=== PATIENT | female | born 1945 | race Two or more races ===

== ENCOUNTER → 2024-06-06 | Outpatient (CLI) | payer OTHER, MEDICAID, SELFPAY ==
--- NOTE | 2024-06-06 17:07 | XR_ITS ---
Examination: Bilateral hips, AP pelvis, 5 views Technique: AP, lateral views both hips, AP pelvis, 5 views Exam date and time: June 06, 2024 1804 hours INDICATIONS: Patient fell today with injury to both hips, bilateral hip pain. FINDINGS: Severe osteopenia Moderate to advanced narrowing hip joints No right or left hip fracture depicted IMPRESSION: No hip or pelvic fracture noted Given the severe osteopenia, recommend short-term follow-up AP pelvis as clinically warranted
== END | disposition home or self-care (01) ==
PROVIDERS: PCP Family Medicine; Referring Provider Family Medicine; Visit Provider Family Medicine
DX: M85.88 Other specified disorders of bone density and structure, other site (principal); S79.912A Unspecified injury of left hip, initial encounter; S79.911A Unspecified injury of right hip, initial encounter; W19.XXXA Unspecified fall, initial encounter
CPT/HCPCS: 73523

== ENCOUNTER → 2024-07-08 | Outpatient (CLI) | payer MEDICARE, MEDICAID, SELFPAY ==
--- NOTE | 2024-07-08 09:49 | XR_ITS ---
Examination: Breast ultrasound complete, bilateral Date and time of exam: July 08, 2024 1003 hours INDICATIONS: Mammogram 03/26/2024 6 mm focal asymmetry inner left breast Technique: Real-time grayscale ultrasonographic imaging bilateral breasts, including all 4 quadrants as well as nipple retroareolar and axillary regions. Findings: Sonographic images right and left breast demonstrated no cystic or solid masses IMPRESSION: BI-RADS Category 1: Negative studies
[2024-07-08 11:24] LABS: Basophils % (Auto) 0 % (0-2.5); Eosinophils # (Auto) 0.1 Thou/mm3 (0.0-0.5); Eosinophils % (Auto) 1 % (0-10); Hematocrit 43.1 % (36.0-46.0); Hemoglobin 14.1 g/dL (12.0-16.0); Immature Granulocytes % (Auto) 0 % (0-0); Immature Granulocytes Auto 0.01 Thou/mm3 (0.00-0.00); Lymphocytes # (Auto) 2.1 Thou/mm3 (1.0-4.8); Lymphocytes % (Auto) 31 % (10-50); Mean Corpuscular HGB Conc 32.7 g/dl (31.0-37.0); Mean Corpuscular Hemoglobin 30.4 pg (25.0-35.0); Mean Corpuscular Volume 93 fL (80-100); Monocytes # (Auto) 0.4 Thou/mm3 (0.0-0.8); Monocytes % (Auto) 6 % (0-12); Neutrophils # (Auto) 4.3 Thou/mm3 (1.8-7.7); Neutrophils % (Auto) 62 % (37-80); Nucleated Red Blood Cell % 0 /100 WBC (0); Platelet Count 236 Thou/mm3 (140-440); RDW Standard Deviation 42.9 fL (36.4-46.3); Red Blood Count 4.64 Miln/mm3 (4.00-5.20)
[2024-07-08 11:34] LABS: Alanine Aminotransferase 10 U/L (10-49); Albumin, Serum 4.5 gm/dL (3.4-4.8); Albumin/Globulin Ratio 1.6 (1.2-2.2); Alkaline Phosphatase 203 U/L (46-116); Anion Gap 6 (7-16); Aspartate Amino Transferase < 10 U/L (0-34); BUN/Creatinine Ratio 16 Ratio (12-20); Bilirubin,Total 0.6 mg/dL (0.3-1.2); Blood Urea Nitrogen 11 mg/dL (9-23); Calcium 11.1 mg/dL (8.3-10.6); Calcium (Corrected) 11.1 mg/dL (8.5-10.1); Carbon Dioxide 28.8 mMol/L (20.0-31.0); Cardiac Risk Estimate 4.1 RATIO (3.7-5.6); Chloride 104 mMol/L (98-107); Cholesterol 206 mg/dL (132-200); Creatinine (Component) 0.7 mg/dL (0.6-1.3); Globulin 2.9 gm/dL (2.3-3.5); Glucose 162 mg/dL (74-106); HDL Cholesterol 50 mg/dL (40-60); LDL Cholesterol,Calculated 130 mg/dL (0-130); Osmolality,Calculated 280 (275-295); Potassium 4.5 mMol/L (3.4-5.1); Sodium 139 mMol/L (136-145); Total Protein 7.4 gm/dL (5.7-8.2); Triglycerides 131 mg/dL (30-150); eGFR > 60 See Note
[2024-07-08 11:38] LABS: Glucose Estimated Average 197 mg/dL (80-131); Hemoglobin A1C 8.5 % Hgb (4.8-6.0)
== END | disposition home or self-care (01) ==
LOC: CDIM 09:44 → COPL 10:18
PROVIDERS: PCP Family Medicine; Referring Provider Family Medicine; Visit Provider Radiology Diagnostic Radiology
DX: R92.2 Inconclusive mammogram (principal); R92.313 Mammographic fatty tissue density, bilateral breasts; E11.65 Type 2 diabetes mellitus with hyperglycemia; E78.2 Mixed hyperlipidemia; I10 Essential (primary) hypertension
CPT/HCPCS: 36415; 76641; 80053; 80061; 83036; 85025

== ENCOUNTER → 2024-07-10 | Outpatient (CLI) | payer MEDICARE, MEDICAID, SELFPAY ==
[2024-07-10 10:20] LABS: Prothrombin Time 11.4 Seconds (9.0-12.2)
== END | disposition home or self-care (01) ==
LOC: COPL 09:04
PROVIDERS: PCP Family Medicine; Referring Provider Family Medicine; Visit Provider Family Medicine
DX: Z00.00 Encounter for general adult medical examination without abnormal findings (principal); E78.2 Mixed hyperlipidemia; E11.40 Type 2 diabetes mellitus with diabetic neuropathy, unspecified; I10 Essential (primary) hypertension
CPT/HCPCS: 36415; 85610

== ENCOUNTER 2024-09-13 07:32 | Emergency (ER) | payer OTHER, SELFPAY ==
[2024-09-13] VITALS (7 sets, daily range): BP systolic 137–171; BP diastolic 87–97; PULSE 87–106; RESP 16–24; TEMP 36.3–36.8; O2SAT 93–99
--- NOTE | 2024-09-13 07:48 | XR_ITS ---
EXAMINATION: CT head/brain wo con, CT cervical spine wo con ORDERING PROVIDER: Juan Umaña NP HISTORY: Pain to back of head and neck status post fall earlier today. TECHNIQUE: CT scanner was used in the volumetric, helical non-contrast acquisition of the head and cervical spine with 2-D and 3-D reformats created on a separate workstation and submitted for interpretation. Institutional dose reducing protocols were utilized. RADIATION DOSE: DLP 1075 mGy-cm COMPARISON: 02/25/2023, noncontrast head CT. FINDINGS: No acute intracranial hemorrhage, mass effect, or midline shift. Mild to moderate global parenchymal volume loss, similar to prior. Mild resultant prominence in the ventricles and sulci. Basal cisterns are preserved. Again seen are diffuse periventricular and subcortical white matter hypodensities, nonspecific, but can be seen with chronic small vessel ischemic changes. Several similar punctate calcifications right greater than left basal ganglia. Mild diffuse increased density of the intracranial vessels, which may be due to hydration status. Moderate perivascular calcifications. Postcataract surgical changes. Moderate mucosal thickening right greater than left sphenoid sinuses. Diffuse bony demineralization. No acute cervical spine fracture or dislocation. The patient's head is turned toward the right, somewhat limiting evaluation for rotatory subluxation. The lateral masses appear to be symmetric. The dens is intact. There are moderate to severe degenerative disc changes most pronounced from C3 to C7. There is trace C3 on C4 anterolisthesis. There are moderate multilevel uncovertebral hypertrophy and mild upper cervical spine facet arthritis changes. 2 mm left tonsillolith. Moderate calcifications of the right brachiocephalic artery. Tortuous vasculature. No prevertebral soft tissue swelling. Topogram is notable for malalignment right humeral head from the glenoid fossa. IMPRESSION: 1. No acute intracranial hemorrhage, mass effect, or midline shift. 2. No cervical spine fracture or dislocation, though limited evaluation for atlantoaxial subluxation given the patient's head rotation. 3. Topogram notable for malalignment of right humeral head from the glenoid fossa. This may be due to patient positioning or shoulder dislocation. Shoulder radiographs are available if there is clinical concern.
--- NOTE | 2024-09-13 07:48 | XR_ITS ---
Examination:Right hip AP, lateral, AP pelvis 3 views Technique: Hip AP lateral, AP pelvis, 3 views Exam date and time:07/16/2024 0828 hrs. Indications: Patient fell today with injury to the right hip, right hip pain. Findings: No acute right hip fracture Advanced narrowing hip joints. Bones the pelvis intact Impression: No acute right hip fracture, recommend 1 day follow-up AP pelvis as clinically warranted.
--- NOTE | 2024-09-13 07:48 | XR_ITS ---
Examination: AP chest single view Technique one AP portable upright chest single view Exam date and time: September 13, 2024 0824 hrs. Indications: Patient fell today with injury to the chest, chest pain Findings: Mild prominence left ventricle No pneumothorax Right upper rib deformities not seen on February 25, 2023 Anterior right shoulder subcoracoid dislocation Impression: No pneumothorax Recommend elective series follow-up Anterior right shoulder subcoracoid dislocation
--- NOTE | 2024-09-13 07:48 | XR_ITS ---
Examination: Humerus 2 views right Technique: Humerus, AP lateral 2 views Date and time of exam: September 13, 2024 0828 hrs. Indications: Patient fell today with injury to the arm, arm pain Findings: Anterior subcoracoid shoulder dislocation. No fracture Impression: Anterior subcoracoid shoulder dislocation Recommend right rib series follow-up
--- NOTE | 2024-09-13 07:49 | PD.EDRME ---
Rapid Medical Screening Exam [facility] Arrival date/time: 09/13/24 07:32 CC: Grimacing with movement of the right arm, and scratching of the right hip after ground-level fall HPI patient fell yesterday stepping through a doorway is very unsteady gait because a significant history of dementia is nonverbal and is being interpreted by . He is not on any blood thinners denies any loss of consciousness or altered level of consciousness. Grimacing and scratching or indications of pain per the . Chief Complaint: Fall Vital signs: Vital Signs Temperature 98.0 F 09/13/24 07:43 Pulse Rate 106 H 09/13/24 07:43 Respiratory Rate 16 09/13/24 07:43 Blood Pressure 146/91 H 09/13/24 07:43 Pulse Oximetry (%) 94 L 09/13/24 07:43 Oxygen Delivery Method Room Air 09/13/24 07:43
--- NOTE | 2024-09-13 08:53 | PD.EDFALL ---
ED Fall Injury RME/HPI General Chief Complaint: Fall Stated Complaint: RIGHT ARM/LEG PAIN SP FALL Time Seen by Provider: 09/13/24 07:51 Arrival date/time: 09/13/24 07:32 RME / HPI RME / HPI Narrative: 09/13/24 07:32 CC: Grimacing with movement of the right arm, and scratching of the right hip after ground-level fall HPI patient fell yesterday stepping through a doorway is very unsteady gait because a significant history of dementia is nonverbal and is being interpreted by . He is not on any blood thinners denies any loss of consciousness or altered level of consciousness. Grimacing and scratching or indications of pain per the . DR. RASCON MAIN ED EVALUATION: 79 year old female with history of dementia presents to the ED brought in by family for evaluation of right shoulder pain after fall. Per [id number], the patient had a ground level mechanical fall 2 days ago and landing on her right side. States yesterday patient had complained of right shoulder and hip pain. However, noted pain in the right shoulder to be worse today. [id number]-vc-wli additionally reports patient slipped out of her wheelchair this morning. States at baseline the patient is able stand and walk with walker however this morning appears weak and had difficulty standing. History is limited from the patient given hx of dementia. While in the ED, family report patient is confused at baseline and does not appear any worse than usual. Related Data Home Medications ?Medication ?Instructions ?Recorded ?Confirmed sitagliptin phos 100 mg-metformin 1 tab PO QPM 04/16/19 02/04/22 ER 1,000 mg tablet,extend rel 24h mp (Janumet XR) atorvastatin 20 mg tablet 1 tab PO HS 02/04/22 02/04/22 Allergies Allergy/AdvReac Type Severity Reaction Status Date / Time No Known Allergies Allergy Verified 02/25/23 12:27 Review of Systems Review of Systems ROS Unobtainable: unobtainable due to medical condition (hx of dementia ) Past Medical History Past Medical History CARDIAC: Positive Cardiac Disorders, Hypercholesterolemia and Hypertension GASTROINTESTINAL: Positive Gastrointestinal Disorders (gastritis) REPRODUCTIVE: Positive Previous Pregnancies (8) MUSCULOSKELETAL: Positive Musculoskeletal Disorders and Arthritis ENT: Positive Cataracts (bilateral) ENDOCRINE: Positive Endocrine Disorders and Diabetes Mellitus Type 2 PSYCHO/SOCIAL: Positive Depression OTHER HISTORY: Positive Hospitalization (dizzines) and Measles Surgical History SURGICAL: Positive Hysterectomy and Section Social History SMOKING STATUS: Never smoker SUBSTANCE USE: does not use ED Exam Narrative Physical exam: Physical Exam: General: The vital signs were reviewed. Pleasantly demented gives good eye contact. The patient is non-toxic, in no apparent distress and appears healthy with a patent airway, no respiratory distress and has no apparent circulatory problems. Head & Scalp: Normocephalic, atraumatic. Complains of head pain but no Face: Appears normal and is without lesions, deformity. Ears: Left external pinna appears normal. Right external pinna appears normal. Eyes: The sclera is anicteric. No obvious photophobia. The Left and Right Orbit/Lid/Conjunctiva appears normal without swelling, discoloration or injection. Nose: The nose is without deformity, discharge or tenderness; Throat: Appears normal. The mucous membranes are pink and moist without exudates, redness or mass seen. The tongue appears normal. Neck: The neck is supple and no apparent mass or adenopathy. Has full active range of motion no obvious tenderness. Chest: The chest wall is normal in size and symmetry and has no chest wall tenderness or crepitus. The patient displays normal ventilator effort without retractions, accessory muscle use and has adequate air movement bilaterally with no wheezes and no rales. Cardiovascular: Regular rate and rhythm; No murmurs, rubs, or gallops; Gastrointestinal: The abdomen appears normal. No obvious hernias or mass. The abdomen is soft and benign, non-distended, with no pain, no guarding and no rebound tenderness. Bowel sounds are present and normal sounding. No CVA tenderness. Genitourinary: Back/Spine: Normal inspection nontender Extremities/Musculoskeletal/lymphatic: The right lateral shoulder has avoided and is tender and appears to be anteriorly dislocated. \The bilateral upper and lower extremities are warm. There is no evidence of arterial insufficiency. There is no evidence of venous insufficiency/edema. The patient spontaneously moves bilateral upper and lower extremities with no pain and no limitation of movement. There is no apparent, injury or trauma. Skin: The skin is warm, dry and intact. No rashes. No petechia. No purpura. No abnormal bruising. The color is appropriate with no cyanosis. Mental status/Psychiatric: Mental status is appropriate for age. The patient has no apparent delusions, visual hallucinations, no apparent audible hallucinations. The patient has no apparent suicidal thoughts/ideation and no apparent homicidal thoughts/ideation. Neurological: The patient is awake, alert, interactive, cordial, cooperative and is oriented to name and situation. The patient follows commands and answers historical question with no impairment. There is no visual disturbance apparent. The pupils are equal and reactive bilaterally with normal eye movements and no diplopia The bilateral upper and lower extremities have normal strength, normal range of motion and normal functioning. The gait, station and balance not tested due to acuity. Course Quality Measures none Orders Category Date Time Status EKG (ED ONLY) *Do not use* NOW Care 09/13/24 09:01 Completed In and Out Catheter X1 Care 09/13/24 09:06 Completed Insert IV NOW Care 09/13/24 08:59 Active Procedural Sedation NOW Care 09/13/24 09:[address] cervical spine wo con Stat Exams 09/13/24 07:[address] head/brain wo con Stat Exams 09/13/24 07:48 Completed EKG (ED Only) Stat Exams 09/13/24 09:01 Draft XR chest 1V Stat Exams 09/13/24 07:48 Completed XR hip RT w pelvis min 4V Stat Exams 09/13/24 07:48 Completed XR humerus RT min 2V Stat Exams 09/13/24 07:48 Completed XR shoulder RT min 2V Stat Exams 09/13/24 14:45 Completed B-Type Natriuretic Peptide Stat Lab 09/13/24 09:46 Completed CBC Stat Lab 09/13/24 09:05 Completed Comprehensive Metabolic Panel Stat Lab 09/13/24 09:46 Completed Lactate (Lactic Acid) Stat Lab 09/13/24 09:05 Completed Lactic Acid, 3 HR Stat Lab 09/13/24 12:36 Completed Magnesium Stat Lab 09/13/24 09:46 Completed Troponin I Stat Lab 09/13/24 09:46 Completed Urinalysis Stat Lab 09/13/24 09:12 Completed Urinalysis, C/S if Indicated Stat Lab 09/13/24 09:12 Completed Propofol Inj [Diprivan Inj] Med 09/13/24 14:20 Discontinued 200 mg IV X1 ONE Tet,Diphth,Pertuss(Acell)-Tdap [Boostrix Vacc] Med 09/13/24 09:05 Discontinued 0.5 ml IMI .ONCE ONE Vital Signs Vital signs: Vital Signs Temperature 98.0 F 09/13/24 07:43 Pulse Rate 106 H 09/13/24 07:43 Respiratory Rate 16 09/13/24 07:43 Blood Pressure 146/91 H 09/13/24 07:43 Pulse Oximetry (%) 94 L 09/13/24 07:43 Oxygen Delivery Method Room Air 09/13/24 07:43 Pulse ox is 94% on room air which is adequate. Procedures -ED Procedural Sedation Indication: fracture/dislocation reduction ASA: 1 Preparation: environmental monitoring specialist applied, pulse oximeter, capnometry used, supplemental O2 applied, suction/airway equipment at bedside and IV secured IV Propofol dose (mg): 120 Patient Tolerated Procedure: well and no complications Complications: hypoxia Interventions: oxygen applied and assist by BVM Fall MDM Narrative MDM Narrative:: Danielle Jimenez am scribing for and in the presence of Dr. Rascon. Patient is brought to the ER by her family who fell 4 days ago to her right side and has been complaining of right shoulder pain and bruising contusion to the right knee and right lateral elbow. The right knee seems to have full range of motion. There is a break in the skin with a scab present last tetanus is unknown. The right lateral elbow has some ecchymosis also. The elbow seems to have full range of motion and normal pronation supination. Clinically there is no fracture in the knee or the elbow. Clearly the right shoulder is dislocated clinically and painful with movement. Will set up a procedural sedation with propofol to reduce this. Patient was verbally consented with family. Respiratory therapy was present initial 1 mg/kg propofol was given initially 40 mg followed by the second 40 mg patient was fairly comfortable but not quite and gave another 40 mg and the patient was very comfortable and we reduced the shoulder and the void was filled. Patient requires a short-term xbl-reabg-veon breathing to assist because of some mild hypoxemia which quickly resolved. There is no nausea or vomiting. 5 minutes later the patient was alert and responding. O2 sats remained in the mid 90s. On room air. Postreduction film reveals the shoulder is back in place with good alignment. Patient tolerated the procedure well. Patient data External records reviewed:: [facility] previous records Clinical information provided by:: family ([id number]) Social determinants that could affect healthcare access:: none Patient has the following chronic illnesses:: Dementia, dm, hld How is presenting disease/condition affected by chronic disease/condition?: uneffected by Evaluation data The following diagnostics were reviewed and interpreted by me:: lab results, radiology exam(s) and EKG tracing(s) (Sinus rhythm, rate 99, left axis deviation, no STEMI) Lab and/or radiology exams considered but not ordered:: None Interpretation Summary: Ordering Physician: Juan Umaña NP Date of Service: 09/13/24 Procedure(s): XR chest 1V Accession Number(s): [id number] cc: Austin Blackwood MD; Juan Umaña NP; Michael Lee MD~ Examination: AP chest single view Technique one AP portable upright chest single view Exam date and time: September 13, 2024 0824 hrs. Indications: Patient fell today with injury to the chest, chest pain Findings: Mild prominence left ventricle No pneumothorax Right upper rib deformities not seen on February 25, 2023 Anterior right shoulder subcoracoid dislocation Impression: No pneumothorax Recommend elective series follow-up Anterior right shoulder subcoracoid dislocation Dictated By: Michael Lee MD Signed By: <Electronically signed by Michael Lee MD in OV> 09/13/24 0917 Ordering Physician: Juan Umaña NP Date of Service: 09/13/24 Procedure(s): XR hip RT w pelvis min 4V Accession Number(s): [id number] cc: Austin Blackwood MD; Juan Umaña NP; Michael Lee MD~ Examination:Right hip AP, lateral, AP pelvis 3 views Technique: Hip AP lateral, AP pelvis, 3 views Exam date and time:07/16/2024 0828 hrs. Indications: Patient fell today with injury to the right hip, right hip pain. Findings: No acute right hip fracture Advanced narrowing hip joints. Bones the pelvis intact Impression: No acute right hip fracture, recommend 1 day follow-up AP pelvis as clinically warranted. Dictated By: Michael Lee MD Signed By: <Electronically signed by Michael Lee MD in OV> 09/13/24 0918 Ordering Physician: Juan Umaña NP Date of Service: 09/13/24 Procedure(s): XR humerus RT min 2V Accession Number(s): [id number] cc: Austin Blackwood MD; Juan Umaña [employer]; Michael Lee MD~ Examination: Humerus 2 views right Technique: Humerus, AP lateral 2 views Date and time of exam: September 13, 2024 0828 hrs. Indications: Patient fell today with injury to the arm, arm pain Findings: Anterior subcoracoid shoulder dislocation. No fracture Impression: Anterior subcoracoid shoulder dislocation Recommend right rib series follow-up Dictated By: Michael Lee MD Signed By: <Electronically signed by Michael Lee MD in OV> 09/13/24 0919 Ordering Physician: Juan Umaña NP Date of Service: 09/13/24 Procedure(s): CT head/brain wo con Accession Number(s): [id number] cc: Austin Blackwood MD; Medhat Art MD; Juan Umaña NP~ EXAMINATION: CT head/brain wo con, CT cervical spine wo con ORDERING PROVIDER: Juan Umaña NP HISTORY: Pain to back of head and neck status post fall earlier today. TECHNIQUE: CT scanner was used in the volumetric, helical non-contrast acquisition of the head and cervical spine with 2-D and 3-D reformats created on a separate workstation and submitted for interpretation. Institutional dose reducing protocols were utilized. RADIATION DOSE: DLP 1075 mGy-cm COMPARISON: 02/25/2023, noncontrast head CT. FINDINGS: No acute intracranial hemorrhage, mass effect, or midline shift. Mild to moderate global parenchymal volume loss, similar to prior. Mild resultant prominence in the ventricles and sulci. Basal cisterns are preserved. Again seen are diffuse periventricular and subcortical white matter hypodensities, nonspecific, but can be seen with chronic small vessel ischemic changes. Several similar punctate calcifications right greater than left basal ganglia. Mild diffuse increased density of the intracranial vessels, which may be due to hydration status. Moderate perivascular calcifications. Postcataract surgical changes. Moderate mucosal thickening right greater than left sphenoid sinuses. Diffuse bony demineralization. No acute cervical spine fracture or dislocation. The patient's head is turned toward the right, somewhat limiting evaluation for rotatory subluxation. The lateral masses appear to be symmetric. The dens is intact. There are moderate to severe degenerative disc changes most pronounced from C3 to C7. There is trace C3 on C4 anterolisthesis. There are moderate multilevel uncovertebral hypertrophy and mild upper cervical spine facet arthritis changes. 2 mm left tonsillolith. Moderate calcifications of the right brachiocephalic artery. Tortuous vasculature. No prevertebral soft tissue swelling. Topogram is notable for malalignment right humeral head from the glenoid fossa. IMPRESSION: 1. No acute intracranial hemorrhage, mass effect, or midline shift. 2. No cervical spine fracture or dislocation, though limited evaluation for atlantoaxial subluxation given the patient's head rotation. 3. Topogram notable for malalignment of right humeral head from the glenoid fossa. This may be due to patient positioning or shoulder dislocation. Shoulder radiographs are available if there is clinical concern. Dictated By: Medhat Art MD Signed By: <Electronically signed by Medhat Art MD in OV> 09/13/24 1038 Ordering Physician: Juan Umaña NP Date of Service: 09/13/24 Procedure(s): CT cervical spine wo con Accession Number(s): [id number] cc: Austin Blackwood MD; Medhat Art MD; Juan Umaña NP~ EXAMINATION: CT head/brain wo con, CT cervical spine wo con ORDERING PROVIDER: Juan Umaña NP HISTORY: Pain to back of head and neck status post fall earlier today. TECHNIQUE: CT scanner was used in the volumetric, helical non-contrast acquisition of the head and cervical spine with 2-D and 3-D reformats created on a separate workstation and submitted for interpretation. Institutional dose reducing protocols were utilized. RADIATION DOSE: DLP 1075 mGy-cm COMPARISON: 02/25/2023, noncontrast head CT. FINDINGS: No acute intracranial hemorrhage, mass effect, or midline shift. Mild to moderate global parenchymal volume loss, similar to prior. Mild resultant prominence in the ventricles and sulci. Basal cisterns are preserved. Again seen are diffuse periventricular and subcortical white matter hypodensities, nonspecific, but can be seen with chronic small vessel ischemic changes. Several similar punctate calcifications right greater than left basal ganglia. Mild diffuse increased density of the intracranial vessels, which may be due to hydration status. Moderate perivascular calcifications. Postcataract surgical changes. Moderate mucosal thickening right greater than left sphenoid sinuses. Diffuse bony demineralization. No acute cervical spine fracture or dislocation. The patient's head is turned toward the right, somewhat limiting evaluation for rotatory subluxation. The lateral masses appear to be symmetric. The dens is intact. There are moderate to severe degenerative disc changes most pronounced from C3 to C7. There is trace C3 on C4 anterolisthesis. There are moderate multilevel uncovertebral hypertrophy and mild upper cervical spine facet arthritis changes. 2 mm left tonsillolith. Moderate calcifications of the right brachiocephalic artery. Tortuous vasculature. No prevertebral soft tissue swelling. Topogram is notable for malalignment right humeral head from the glenoid fossa. IMPRESSION: 1. No acute intracranial hemorrhage, mass effect, or midline shift. 2. No cervical spine fracture or dislocation, though limited evaluation for atlantoaxial subluxation given the patient's head rotation. 3. Topogram notable for malalignment of right humeral head from the glenoid fossa. This may be due to patient positioning or shoulder dislocation. Shoulder radiographs are available if there is clinical concern. Dictated By: Medhat Art MD Signed By: <Electronically signed by Medhat Art MD in OV> 09/13/24 1038 Ordering Physician: Nabil Rascon MD Date of Service: 09/13/24 Procedure(s): XR shoulder RT min 2V Accession Number(s): [id number] cc: Austin Blackwood MD; Nabil Rascon MD; Michael Lee MD~ Examination: Right shoulder 2 views Technique: AP internal rotation, Y view right shoulder 2 views Exam date and time: September 13, 2024, 1345 hrs. Comparison 07/16/2019 5028 hrs. Indications: Post reduction shoulder dislocation today. Findings: Successful reduction shoulder dislocation. No fracture depicted Impression: Successful reduction shoulder dislocation Dictated By: Michael Lee MD Signed By: <Electronically signed by Michael Lee MD in OV> 09/13/24 1459 Medications / Prescriptions Medications or Prescriptions considered but not ordered:: None Medication administrations:: Medication Administration History Discontinued Medications Diphtheria/Tetanus/Acell Pertussis (Diphth,Pertuss(Acell),Tet Vac 0.5 Ml Syr- Adult) 0.5 ml IMi .ONCE ONE Stop: 09/13/24 09:06 Propofol (Propofol Inj 10 Mg/Ml Vial 20 Ml) 200 mg IV X1 ONE Stop: 09/13/24 14:21 Last Admin: 09/13/24 14:51 Dose: 200 mg Documented By: NASRIN Comments: pushed during procedure by See above Consultations Consultation(s) initiated? (list below): No Diagnosis Fall Differential Diagnosis: dislocation of shoulder region and compression fracture Most likely diagnosis given after review of the tests above:: anterior dislocation right shoulder hypercalcemia Admission Indicated Admission indicated?: not indicated Admission Request Was there a request for admission?: No Disposition Plan Disposition Plan: Discharge Discharge Attestation Discharge Attestation: The patient and all family members were given an opportunity to ask questions and understood the discharge instructions. Discharge instructions specifically effects, indications for sooner follow up or return to the emergency department, and the expected course of current diagnosis. Patient condition: Stable Discharge Plan Plan Patient Disposition: HOME (Self Care) Prescriptions/Referrals Prescriptions/Med Rec: No Action Janumet XR 100-1,000 mg Tablet, Er Multiphase 24 Hr 1 tab PO QPM atorvastatin 20 mg tablet 1 tab PO HS Referrals: Austin Blackwood MD [Primary Care Provider] - In 1 week Problem List Clinical Impression: Anterior dislocation of right shoulder, Hypercalcemia, Falling Patient/Caregiver Discharge Instructions Education Materials: ED Dislocation: Shoulder (Reduced) Additional Instructions: Be careful as you are at risk for falling. Today your right shoulder was dislocated and it was reduced and is now back in place. Please wear the sling to prevent your arm and shoulder from again becoming dislocated follow-up with your doctor in 2 to 3 days and have them refer you to the orthopedic surgeon as needed. Keep it elevated. You can use ice packs intermittently and you can use ibuprofen for pain. Print Language: Urdu Stand Alone Forms: Patient Portal Info Letter
--- NOTE | 2024-09-13 09:01 | EKG_ITS ---
[facility] Test Date: 2024-09-13 Pat Name: JESSICA PHILLIPSDepartment: Room: - Gender: Female Ed Physicians: : [id number] Requested By: Nabil Rascon Order Number: [id number] Reading MD: Nabil Rascon Measurements Intervals [place] Rate: 99 P: 44 DE: 182 QRS: -34 QRSD: 89 T: 18 QT: 342 QTc: 440 Interpretive Statements SINUS RHYTHM LEFT AXIS DEVIATION [QRS AXIS < -30] PATTERN CONSISTENT WITH PULMONARY DISEASE No previous ECG available for comparison /store/S0/[id number].pdf
[2024-09-13 09:17] LABS: Lactate (Lactic Acid) 2.3 mMol/L (0.4-2.0)
[2024-09-13 09:23] LABS: Basophils % (Auto) 0 % (0-2.5); Eosinophils % (Auto) 0 % (0-10); Hematocrit 43.4 % (36.0-46.0); Hemoglobin 14.5 g/dL (12.0-16.0); Immature Granulocytes % (Auto) 0 % (0-0); Immature Granulocytes Auto 0.06 Thou/mm3 (0.00-0.00); Lymphocytes # (Auto) 1.2 Thou/mm3 (1.0-4.8); Lymphocytes % (Auto) 9 % (10-50); Mean Corpuscular HGB Conc 33.4 g/dl (31.0-37.0); Mean Corpuscular Hemoglobin 30.4 pg (25.0-35.0); Mean Corpuscular Volume 91 fL (80-100); Monocytes # (Auto) 0.6 Thou/mm3 (0.0-0.8); Monocytes % (Auto) 5 % (0-12); Neutrophils # (Auto) 11.5 Thou/mm3 (1.8-7.7); Neutrophils % (Auto) 86 % (37-80); Nucleated Red Blood Cell % 0 /100 WBC (0); Platelet Count 262 Thou/mm3 (140-440); RDW Standard Deviation 48.1 fL (36.4-46.3); Red Blood Count 4.77 Miln/mm3 (4.00-5.20); White Blood Count 13.4 Thou/mm3 (3.6-11.0)
[2024-09-13 09:31] LABS: Collection Type, Urine Clean Catch
[2024-09-13 09:41] LABS: Bacteria,Urine Rare; Bilirubin,Urine Negative (Negative); Blood,Urine Negative (Negative); Clarity,Urine Clear (Clear/Hazy); Color,Urine Yellow (Lt Yel-Yel); Culture Indicated,Urine Not Indicated; Glucose, Urine 4+ (Negative); Ketones,Urine Trace (Negative); Leukocyte Esterase,Urine Negative (Negative); Nitrite,Urine Negative (Negative); PH,Urine 5.5 (5.0-7.0); Protein,Urine Negative (Neg - Trace); RBC,Urine 3 /hpf (0-3); Specific Gravity,Urine 1.032 (1.001-1.035); Squamous Epithelial Cell,Urine 4 /hpf (0-5); Urobilinogen,Urine Negative mg/dL (0.0-1.0); WBC,Urine 1 /hpf (0-5)
--- NOTE | 2024-09-13 10:05 | CHAP ---
Patient expressed gratitude for prayer and visit.
[2024-09-13 11:06] LABS: Alanine Aminotransferase 24 U/L (10-49); Albumin, Serum 4.2 gm/dL (3.4-4.8); Albumin/Globulin Ratio 1.2 (1.2-2.2); Alkaline Phosphatase 152 U/L (46-116); Anion Gap 10 (7-16); Aspartate Amino Transferase 50 U/L (0-34); BUN/Creatinine Ratio 19 Ratio (12-20); Bilirubin,Total 1.1 mg/dL (0.3-1.2); Blood Urea Nitrogen 13 mg/dL (9-23); Calcium 11.5 mg/dL (8.3-10.6); Calcium (Corrected) 11.5 mg/dL (8.5-10.1); Carbon Dioxide 24.1 mMol/L (20.0-31.0); Chloride 105 mMol/L (98-107); Creatinine (Component) 0.7 mg/dL (0.6-1.3); Estimated Creatinine Clearance 63.1 mL/min (>60); Globulin 3.4 gm/dL (2.3-3.5); Glucose 308 mg/dL (74-106); Magnesium 1.9 mg/dL (1.6-2.6); Osmolality,Calculated 289 (275-295); Sodium 139 mMol/L (136-145); Total Protein 7.6 gm/dL (5.7-8.2); Troponin I < 0.020 ng/mL (0.0-0.045); eGFR > 60 See Note
[2024-09-13 11:09] LABS: B-Type Natriuretic Peptide 37 pg/mL (0-100); Potassium 4.7 mMol/L (3.4-5.1)
[2024-09-13 12:20] LABS: Reflex Lactate? Y
[2024-09-13 12:56] LABS: Lactic Acid, 3 HR 1.5 mMol/L (0.4-2.0)
--- NOTE | 2024-09-13 14:45 | XR_ITS ---
Examination: Right shoulder 2 views Technique: AP internal rotation, Y view right shoulder 2 views Exam date and time: September 13, 2024, 1345 hrs. Comparison 07/16/2019 5028 hrs. Indications: Post reduction shoulder dislocation today. Findings: Successful reduction shoulder dislocation. No fracture depicted Impression: Successful reduction shoulder dislocation
[2024-09-13] MEDS: PROPOFOL INJ 10 MG/ML VIAL 20 ML 200 MG IV (14:51)
[2024-09-13] MEDS: DIPHTH,PERTUSS(ACELL),TET VAC 0.5 ML SYR- ADULT IMi (16:38)
== END 2024-09-13 16:59 | disposition home or self-care (01) ==
PROVIDERS: Emergency Provider Emergency Medicine; PCP Family Medicine
DX: S43.014A Anterior dislocation of right humerus, initial encounter (principal); E83.52 Hypercalcemia; S29.9XXA Unspecified injury of thorax, initial encounter; S79.911A Unspecified injury of right hip, initial encounter; M54.2 Cervicalgia; R51.9 Headache, unspecified; E78.00 Pure hypercholesterolemia, unspecified; I10 Essential (primary) hypertension; W18.30XA Fall on same level, unspecified, initial encounter; Z23 Encounter for immunization
CPT/HCPCS: 23650; 51701; 36415; 70450; 71045; 72125; 73030; 73060; 73503; 80053; 81001; 83605; 83735; 83880; 84484; 85025; 90471; 90715; 93005; 99285; J2704

== ENCOUNTER 2024-09-18 14:34 | Emergency (ER) | payer MEDICARE, OTHER, SELFPAY ==
[2024-09-18] VITALS (9 sets, daily range): BP systolic 121–134; BP diastolic 76–81; PULSE 82–99; RESP 17–25; TEMP 36.5–36.9; O2SAT 92–100; BMI 34.0
--- NOTE | 2024-09-18 16:23 | XR_ITS ---
Examination: Ribs, right, with PA chest, 5 views Technique: Chest PA, RIBS AP, RPO, LPO, AP coned lower ribs 5 views Exam date and time: September 18, 2024 1600 hours INDICATIONS: Patient fell 2 days ago with injury of the right chest, right rib pain Findings: Atelectasis versus pneumonia at the lung bases No pneumothorax Normal heart size. Severe osteopenia Acute fracture right seventh rib anteriorly Acute fracture right eighth rib anteriorly, both without significant displacement Old fracture right 10th rib IMPRESSION: No pneumothorax Acute fractures right seventh and eighth ribs anteriorly
--- NOTE | 2024-09-18 16:23 | XR_ITS ---
Examination: CT brain head without contrast. 2-D sagittal coronal reconstructions Date and time of exam:September 18, 2024 1803 hours Comparison September 13, 2024 INDICATIONS: Altered mental status today CTDI: vol (mGy):45.9 DLP: (mGycm):875 Technique: Multiple CT axial sections of the brain have been obtained, 5 mm slice thickness. Contrast has not been administered. 2-D sagittal, coronal reconstructions have been obtained Low dose protocols were performed. One or more of the following dose reduction techniques were used; automated exposure control, adjustment of the mA and/or KV according to patient size, use of iterative reconstruction technique. Findings: No significant ventricular enlargement. Intra-axial or extra-axial hemorrhage density is not seen. No mass effect or midline shift Basal cisterns are not remarkable. Fourth ventricle is midline. Cranial vault intact. Impression: Negative for acute hemorrhage, mass effect or midline shift Advise clinical correlation and follow up accordingly If symptoms persist, consider brain MRI follow-up
--- NOTE | 2024-09-18 16:25 | PD.EDAMS ---
Altered Mental Status RME/HPI General Chief Complaint: Altered Mental Status Stated Complaint: AMS Time Seen by Provider: 09/18/24 16:14 Arrival date/time: 09/18/24 14:34 RME / HPI RME / HPI narrative: 79-year-old female patient was brought in by EMS for evaluation regarding altered mental status. Patient was seen here last week for right and anterior shoulder dislocation after a fall, reduction was done, and yesterday patient continues to have pain on her right chest wall area, called PCP and was prescribed indomethacin and Flexeril. Patient was given first dose of the medication last night and this morning patient woke up with confusion. Patient is not really verbal since patient had a significant history of dementia. No other complaints noted. Related Data Home Medications ?Medication ?Instructions ?Recorded ?Confirmed sitagliptin phos 100 mg-metformin 1 tab PO QPM 04/16/19 02/04/22 ER 1,000 mg tablet,extend rel 24h mp (Janumet XR) atorvastatin 20 mg tablet 1 tab PO HS 02/04/22 02/04/22 Previous Rx's ?Medication ?Instructions ?Recorded lidocaine 5 % topical patch 1 patch topical QDAY #15 ea 09/18/24 Allergies Allergy/AdvReac Type Severity Reaction Status Date / Time No Known Allergies Allergy Verified 09/18/24 14:37 Review of Systems Review of Systems Narrative Review of Systems: Review of system reviewed and within normal limits except mentioned in HPI ED Exam Narrative Physical exam: VITAL SIGNS: Reviewed. GENERAL APPEARANCE: Alert and interactive, follows commands, no acute distress, HEAD AND FACE: Non-traumatic. ENT: PERRL, pink conjunctivitis, eyelid no trauma, Mucous membrane moist. NECK: Supple, nontender, no nuchal rigidity. CHEST: Left anterior chest wall tenderness, no crepitus, no paradoxical movement, no retractions. LUNGS: Clear, well ventilated, symmetric, no rales, no wheezing, no ronchi, no stridor, good breath sounds bilaterally. HEART: Regular rate, regular rhythm, no murmur, no gallops. ABDOMEN: Soft, positive bowel sounds, nondistended, no guarding, nontender, no rebound, no masses, RECTAL: Deferred. GENITAL: Deferred. NEUROLOGICAL: Gross motor function intact sensory function intact, Appropriate for age. MUSCULOSKELETAL: low back nontender, full range of motion. EXTREMITIES: Nontender, full range of motion. SKIN: Color pink, dry, no rash, no lacerations, no abrasions, no contusions. LYMPHATICS: Deferred. Course Quality Measures none Orders Category Date Time Status Straight [In and Out Catheter] X1 Care 09/18/24 16:[address] head/brain wo con Stat Exams 09/18/24 16:23 Completed XR ribs RT min 3V w CXR1V Stat Exams 09/18/24 16:23 Completed B-Type Natriuretic Peptide Stat Lab 09/18/24 16:56 Completed CBC Stat Lab 09/18/24 16:56 Completed Comprehensive Metabolic Panel Stat Lab 09/18/24 16:56 Completed Partial Thromboplastin Time Stat Lab 09/18/24 16:56 Completed Troponin I Stat Lab 09/18/24 16:56 Completed Urinalysis, C/S if Indicated Stat Lab 09/18/24 18:00 Completed Urine Culture Stat Lab 09/18/24 18:00 Received Lidocaine 5% Patch Med 09/18/24 18:59 Discontinued 1 patch TOP X1 ONE Vital Signs Vital signs: Vital Signs Temperature 98.3 F 09/18/24 14:34 Pulse Rate 99 09/18/24 14:34 Respiratory Rate 17 09/18/24 14:34 Blood Pressure 134/78 H 09/18/24 14:34 Pulse Oximetry (%) 94 L 09/18/24 14:34 Oxygen Delivery Method Room Air 09/18/24 14:34 Altered Mental Status MDM Narrative MDM Narrative:: 79-year-old female patient was brought in by EMS for evaluation regarding altered mental status. Patient was seen here last week for right and anterior shoulder dislocation after a fall, reduction was done, and yesterday patient continues to have pain on her right chest wall area, called PCP and was prescribed indomethacin and Flexeril. Patient was given first dose of the medication last night and this morning patient woke up with confusion. Patient is not really verbal since patient had a significant history of dementia. No other complaints noted. CT scan of the head came back unremarkable. Laboratory workup also came back normal including no UTI. Chest x-ray showed acute rib fracture 7 and 8, no pneumothorax no hemothorax noted. Results discussed with family. Patient was given lidocaine patch. Prior to discharge patient was noted to be smiling and back to her baseline. Patient data External records reviewed:: None Clinical information provided by:: family Social determinants that could affect healthcare access:: none Patient has the following chronic illnesses:: None How is presenting disease/condition affected by chronic disease/condition?: no chronic disease Evaluation data The following diagnostics were reviewed and interpreted by me:: lab results and radiology exam(s) Lab and/or radiology exams considered but not ordered:: None Interpretation Summary: See results in [facility] Medications / Prescriptions Medications or Prescriptions considered but not ordered:: None Medication administrations:: Medication Administration History Discontinued Medications Lidocaine (Lidocaine 5% 1 Patch) 1 patch TOP X1 ONE Stop: 09/18/24 19:00 Lidocaine patch Consultations Consultation(s) initiated? (list below): No Diagnosis Differential diagnosis altered mental status: altered mental status and other (Adverse effect of medication, ribs fracture) Most likely diagnosis given after review of the tests above:: Ribs fracture, adverse effect of medication Admission Indicated Admission indicated?: not indicated Explain why admission is indicated or not indicated:: None Admission Request Was there a request for admission?: No Disposition Plan Disposition Plan: Discharge Discharge Attestation Discharge Attestation: The patient and all family members were given an opportunity to ask questions and understood the discharge instructions. Discharge instructions specifically effects, indications for sooner follow up or return to the emergency department, and the expected course of current diagnosis. Patient condition: Stable Discharge Plan Plan Patient Disposition: HOME (Self Care) Disposition Comment: Stable Prescriptions/Referrals Prescriptions/Med Rec: New lidocaine 5 % adhesive patch,medicated 1 patch topical QDAY Qty: 15 0RF Rx Instructions: leave on most painful area for up to 12 hrs No Action Janumet XR 100-1,000 mg Tablet, Er Multiphase 24 Hr 1 tab PO QPM atorvastatin 20 mg tablet 1 tab PO HS Referrals: Austin Blackwood MD [Primary Care Provider] - In 1 week Problem List Clinical Impression: Closed rib fracture, Adverse effects of medication Patient/Caregiver Discharge Instructions Discharge Activity: activity as tolerated Education Materials: ED Rib Fracture Additional Instructions: Thank you for the opportunity for serving you today. You are stable for discharged . You are advised to: Follow-up with your PCP in 1 to 2 days Return to ED for worsening of symptoms Increase oral fluids Take medication as prescribed Take [id number] Tylenol or Motrin as needed for pain Apply the lidocaine in the morning remove it during the night for pain Please do not give the Flexeril. Print Language: Greenlandic Stand Alone Forms: Jaclyn Award Info., Patient Portal Info Letter PA/MULTI SLIDE MACHINE TENDER Supervising Physician PA/MULTI SLIDE MACHINE TENDER Supervising Physician: MD Jose Roberto
[2024-09-18 17:04] LABS: Basophils % (Auto) 0 % (0-2.5); Eosinophils % (Auto) 0 % (0-10); Hematocrit 39.2 % (36.0-46.0); Hemoglobin 13.2 g/dL (12.0-16.0); Immature Granulocytes % (Auto) 0 % (0-0); Immature Granulocytes Auto 0.02 Thou/mm3 (0.00-0.00); Lymphocytes # (Auto) 1.2 Thou/mm3 (1.0-4.8); Lymphocytes % (Auto) 18 % (10-50); Mean Corpuscular HGB Conc 33.7 g/dl (31.0-37.0); Mean Corpuscular Hemoglobin 30.5 pg (25.0-35.0); Mean Corpuscular Volume 91 fL (80-100); Monocytes # (Auto) 0.6 Thou/mm3 (0.0-0.8); Monocytes % (Auto) 9 % (0-12); Neutrophils # (Auto) 4.9 Thou/mm3 (1.8-7.7); Neutrophils % (Auto) 72 % (37-80); Nucleated Red Blood Cell % 0 /100 WBC (0); Platelet Count 201 Thou/mm3 (140-440); RDW Standard Deviation 43.9 fL (36.4-46.3); Red Blood Count 4.33 Miln/mm3 (4.00-5.20); White Blood Count 6.7 Thou/mm3 (3.6-11.0)
[2024-09-18 17:18] LABS: Partial Thromboplastin Time 23.7 Seconds (22.0-36.0)
[2024-09-18 17:23] LABS: B-Type Natriuretic Peptide 41 pg/mL (0-100)
[2024-09-18 17:25] LABS: Alanine Aminotransferase 17 U/L (10-49); Albumin, Serum 3.6 gm/dL (3.4-4.8); Albumin/Globulin Ratio 1.3 (1.2-2.2); Alkaline Phosphatase 152 U/L (46-116); Anion Gap 9 (7-16); Aspartate Amino Transferase 27 U/L (0-34); BUN/Creatinine Ratio 16 Ratio (12-20); Bilirubin,Total 0.8 mg/dL (0.3-1.2); Blood Urea Nitrogen 11 mg/dL (9-23); Calcium (Corrected) 10.3 mg/dL (8.5-10.1); Carbon Dioxide 27.5 mMol/L (20.0-31.0); Chloride 101 mMol/L (98-107); Creatinine (Component) 0.7 mg/dL (0.6-1.3); Estimated Creatinine Clearance 63.1 mL/min (>60); Globulin 2.7 gm/dL (2.3-3.5); Glucose 203 mg/dL (74-106); Osmolality,Calculated 279 (275-295); Potassium 3.8 mMol/L (3.4-5.1); Sodium 137 mMol/L (136-145); Total Protein 6.3 gm/dL (5.7-8.2); Troponin I < 0.002 ng/mL (0.0-0.045); eGFR > 60 See Note
[2024-09-18 18:17] LABS: Collection Type, Urine Clean Catch; RBC,Urine 0 /hpf (0-3); WBC,Urine 0 /hpf (0-5)
[2024-09-18 19:10] LABS: Bacteria,Urine 1+; Bilirubin,Urine Negative (Negative); Blood,Urine Negative (Negative); Clarity,Urine Clear (Clear/Hazy); Color,Urine Yellow (Lt Yel-Yel); Glucose, Urine 3+ (Negative); Ketones,Urine 1+ (Negative); Leukocyte Esterase,Urine Negative (Negative); Nitrite,Urine Negative (Negative); Protein,Urine Trace (Neg - Trace); Squamous Epithelial Cell,Urine 7 /hpf (0-5)
[2024-09-18 19:11] LABS: Culture Indicated,Urine Yes
[2024-09-18] MEDS: LIDOCAINE 5% 1 PATCH TOP (20:10)
== END 2024-09-18 21:50 | disposition home or self-care (01) ==
PROVIDERS: Nurse Practitioner Family; Emergency Provider Family Medicine; PCP Family Medicine
DX: S22.41XA Multiple fractures of ribs, right side, initial encounter for closed fracture (principal); W19.XXXA Unspecified fall, initial encounter; F03.90 Unspecified dementia, unspecified severity, without behavioral disturbance, psychotic disturbance, mood disturbance, and anxiety; R41.82 Altered mental status, unspecified
CPT/HCPCS: 36415; 70450; 71101; 80053; 81001; 83880; 84484; 85025; 85730; 87086; 99284; J3490

== ENCOUNTER → 2024-11-26 | Outpatient (CLI) | payer MEDICARE, MEDICAID, SELFPAY ==
--- NOTE | 2024-11-26 16:18 | XR_ITS ---
Examination: PA lateral chest 2 views TECHNIQUE: Upright PA and lateral chest 2 views Date and time: November 26, 2024 1626 hours INDICATIONS: Coughing and wheezing beginning one week ago. FINDINGS: Mild pneumonia both bases Increased AP dimension chest Normal heart size Prominent osteopenia IMPRESSION: Mild bibasilar pneumonia
== END | disposition home or self-care (01) ==
PROVIDERS: Referring Provider Family Medicine; Visit Provider Family Medicine
DX: J18.9 Pneumonia, unspecified organism (principal)
CPT/HCPCS: 71046

== ENCOUNTER → 2024-12-20 | Outpatient (CLI) | payer MEDICARE, MEDICAID, SELFPAY ==
[2024-12-20 11:18] LABS: Basophils % (Auto) 0 % (0-2.5); Eosinophils # (Auto) 0.1 Thou/mm3 (0.0-0.5); Eosinophils % (Auto) 1 % (0-10); Hematocrit 42.1 % (36.0-46.0); Hemoglobin 13.8 g/dL (12.0-16.0); Immature Granulocytes % (Auto) 0 % (0-0); Immature Granulocytes Auto 0.01 Thou/mm3 (0.00-0.00); Lymphocytes # (Auto) 2.1 Thou/mm3 (1.0-4.8); Lymphocytes % (Auto) 31 % (10-50); Mean Corpuscular HGB Conc 32.8 g/dl (31.0-37.0); Mean Corpuscular Hemoglobin 30.3 pg (25.0-35.0); Mean Corpuscular Volume 92 fL (80-100); Monocytes # (Auto) 0.5 Thou/mm3 (0.0-0.8); Monocytes % (Auto) 7 % (0-12); Neutrophils % (Auto) 61 % (37-80); Nucleated Red Blood Cell % 0 /100 WBC (0); Platelet Count 267 Thou/mm3 (140-440); RDW Standard Deviation 45.1 fL (36.4-46.3); Red Blood Count 4.56 Miln/mm3 (4.00-5.20); White Blood Count 6.7 Thou/mm3 (3.6-11.0)
[2024-12-20 11:31] LABS: Glucose Estimated Average 180 mg/dL (80-131); Hemoglobin A1C 7.9 % Hgb (4.8-6.0)
[2024-12-20 11:54] LABS: Alanine Aminotransferase 8 U/L (10-49); Albumin, Serum 4.1 gm/dL (3.4-4.8); Albumin/Globulin Ratio 1.5 (1.2-2.2); Alkaline Phosphatase 192 U/L (46-116); Anion Gap 5 (7-16); Aspartate Amino Transferase 18 U/L (0-34); BUN/Creatinine Ratio 14 Ratio (12-20); Bilirubin,Total 0.8 mg/dL (0.3-1.2); Blood Urea Nitrogen 10 mg/dL (9-23); Calcium 10.6 mg/dL (8.3-10.6); Calcium (Corrected) 10.6 mg/dL (8.5-10.1); Carbon Dioxide 28.6 mMol/L (20.0-31.0); Cardiac Risk Estimate 3.1 RATIO (3.7-5.6); Chloride 105 mMol/L (98-107); Cholesterol 179 mg/dL (132-200); Creatinine (Component) 0.7 mg/dL (0.6-1.3); Globulin 2.7 gm/dL (2.3-3.5); Glucose 166 mg/dL (74-106); HDL Cholesterol 57 mg/dL (40-60); LDL Cholesterol,Calculated 105 mg/dL (0-130); Osmolality,Calculated 280 (275-295); Potassium 4.2 mMol/L (3.4-5.1); Sodium 139 mMol/L (136-145); Total Protein 6.8 gm/dL (5.7-8.2); Triglycerides 84 mg/dL (30-150); eGFR > 60 See Note
== END | disposition home or self-care (01) ==
LOC: COPL 09:33
PROVIDERS: PCP Family Medicine; Referring Provider Family Medicine; Visit Provider Family Medicine
DX: E11.9 Type 2 diabetes mellitus without complications (principal); E78.2 Mixed hyperlipidemia; I10 Essential (primary) hypertension
CPT/HCPCS: 36415; 80053; 80061; 83036; 85025

== ENCOUNTER → 2025-05-28 | Outpatient (CLI) | payer MEDICARE, MEDICAID, SELFPAY ==
[2025-05-28 10:11] LABS: Basophils # (Auto) 0.0 Thou/mm3 (0.0-0.2); Basophils % (Auto) 0 % (0-2.5); Eosinophils # (Auto) 0.1 Thou/mm3 (0.0-0.5); Eosinophils % (Auto) 1 % (0-10); Hematocrit 43.2 % (36.0-46.0); Hemoglobin 14.2 g/dL (12.0-16.0); Immature Granulocytes Auto 0.02 Thou/mm3 (0.00-0.00); Lymphocytes # (Auto) 2.0 Thou/mm3 (1.0-4.8); Lymphocytes % (Auto) 29 % (10-50); Mean Corpuscular HGB Conc 32.9 g/dl (31.0-37.0); Mean Corpuscular Hemoglobin 30.9 pg (25.0-35.0); Mean Corpuscular Volume 94 fL (80-100); Monocytes # (Auto) 0.5 Thou/mm3 (0.0-0.8); Monocytes % (Auto) 7 % (0-12); Neutrophils # (Auto) 4.3 Thou/mm3 (1.8-7.7); Neutrophils % (Auto) 63 % (37-80); Nucleated Red Blood Cell # 0.00 Thou/mm3 (0.00-0.00); Nucleated Red Blood Cell % 0 /100 WBC (0); Platelet Count 236 Thou/mm3 (140-440); RDW Standard Deviation 43.8 fL (36.4-46.3); Red Blood Count 4.60 Miln/mm3 (4.00-5.20); White Blood Count 6.8 Thou/mm3 (3.6-11.0)
[2025-05-28 10:26] LABS: Glucose Estimated Average 174 mg/dL (80-131); Hemoglobin A1C 7.7 % Hgb (4.8-6.0)
[2025-05-28 10:40] LABS: Alanine Aminotransferase 10 U/L (10-49); Albumin, Serum 4.4 gm/dL (3.4-4.8); Albumin/Globulin Ratio 1.5 (1.2-2.2); Alkaline Phosphatase 147 U/L (46-116); Anion Gap 7 (7-16); Aspartate Amino Transferase 17 U/L (0-34); BUN/Creatinine Ratio 16 Ratio (12-20); Bilirubin,Total 0.8 mg/dL (0.3-1.2); Blood Urea Nitrogen 11 mg/dL (9-23); Calcium 10.5 mg/dL (8.3-10.6); Calcium (Corrected) 10.5 mg/dL (8.5-10.1); Carbon Dioxide 30.0 mMol/L (20.0-31.0); Cardiac Risk Estimate 3.4 RATIO (3.7-5.6); Chloride 104 mMol/L (98-107); Cholesterol 179 mg/dL (132-200); Creatinine (Component) 0.7 mg/dL (0.6-1.3); Globulin 2.9 gm/dL (2.3-3.5); Glucose 161 mg/dL (74-106); HDL Cholesterol 53 mg/dL (40-60); LDL Cholesterol,Calculated 108 mg/dL (0-130); Osmolality,Calculated 283 (275-295); Potassium 4.3 mMol/L (3.4-5.1); Sodium 141 mMol/L (136-145); Total Protein 7.3 gm/dL (5.7-8.2); Triglycerides 88 mg/dL (30-150); eGFR > 60 See Note
== END | disposition home or self-care (01) ==
LOC: COPL 08:28
PROVIDERS: PCP Family Medicine; Referring Provider Family Medicine; Visit Provider Family Medicine
DX: E11.69 Type 2 diabetes mellitus with other specified complication (principal); E78.2 Mixed hyperlipidemia; I10 Essential (primary) hypertension
CPT/HCPCS: 36415; 80053; 80061; 83036; 85025